=== PATIENT | male | born 1930 | race Caucasian/White ===

== ENCOUNTER 2019-06-28 14:01 | Emergency (ER) | payer MEDICARE, BC ==
[~2019-06-28] VITALS: Ht 180.3 cm; Wt 69.9 kg
[~2019-06-28 14:01] MED LIST: AMIO200T61 PO; ASCO-248 PO; ASPI-1009 PO; DOCU100C40 PO; FLUO-186 PO; METH500T4 PO; OMEG-166 PO; PROP10TA10 PO; SYN0.0125T PO; ZET10T PO; ZOC40T PO; ZOLP5TAB8 PO
--- NOTE | 2019-06-28 14:31 | NUR ---
PT BACK FROM CT VIA [facility] BY [employer]
[2019-06-28] MEDS ORDERED: LIDOcaine 1% W/epiNEPHrine 1:100,000 20ml vial SQ ONE (14:55)
[2019-06-28] MEDS ORDERED: tetanus & diphtheria toxoid (Td) vaccine 0.5ml IMVAC ONE (15:45)
[2019-06-28] MEDS ORDERED: TETanus/Pertussis (Acell)/Diphther VAC/PF (Tdap-Adult) 0.5ml syringe IMVAC ONE (15:50)
[2019-06-28 16:33] VITALS: BP 130/85
== END 2019-06-28 16:36 | disposition home or self-care (01) ==
LOC: ER 14:02
DX: S01.81XA Laceration without foreign body of other part of head, initial encounter (principal); S80.212A Abrasion, left knee, initial encounter; S80.211A Abrasion, right knee, initial encounter; I25.10 Atherosclerotic heart disease of native coronary artery without angina pectoris; M19.90 Unspecified osteoarthritis, unspecified site; Z79.899 Other long term (current) drug therapy; Z79.82 Long term (current) use of aspirin; Z79.01 Long term (current) use of anticoagulants; Z95.1 Presence of aortocoronary bypass graft; W10.8XXA Fall (on) (from) other stairs and steps, initial encounter; Y93.01 Activity, walking, marching and hiking; Y92.89 Other specified places as the place of occurrence of the external cause; Y99.8 Other external cause status
CPT/HCPCS: 12011; 70450; 90471; 99284

== ENCOUNTER → 2019-12-16 | Outpatient (CLI) | payer MEDICARE, BC ==
[~2019-12-16] MED LIST changes: +AMIO100T4 PO; -AMIO200T61 PO; -ASCO-248 PO; -ASPI-1009 PO; +ATOR-2 PO; -DOCU100C40 PO; -FLUO-186 PO; +FLUO10CA30 PO; +LEVO125T8 PO; -METH500T4 PO; +NITR0.4T48 PO; -OMEG-166 PO; -SYN0.0125T PO; +TEMA15CA PO; +WARF1TAB PO; -ZET10T PO; -ZOC40T PO; -ZOLP5TAB8 PO
[2019-12-16 12:16] LABS: BASOPHILS % (AUTO) 1.3 % (0-1); EOSINOPHILS # (AUTO) 0.1 X10'3 (0-0.9); EOSINOPHILS % (AUTO) 3.7 % (0-6); HEMATOCRIT 24.3 % (42.0-52.0); HEMOGLOBIN 7.7 g/dl (14.0-17.9); LYMPHOCYTES # (AUTO) 0.4 X10'3 (1.1-4.8); LYMPHOCYTES % (AUTO) 10.9 % (21-51); MEAN CORPUSCULAR HEMOGLOBIN 25.9 PG (27.0-31.0); MEAN CORPUSCULAR HGB CONC 31.7 g/dL (33.0-36.5); MEAN CORPUSCULAR VOLUME 81.7 FL (78-98); MEAN PLATELET VOLUME 8.4 FL (7.4-10.4); MONOCYTES # (AUTO) 0.4 X10'3 (0-0.9); MONOCYTES % (AUTO) 11.9 % (2-12); NEUTROPHILS # (AUTO) 2.7 X10'3 (1.8-7.7); NEUTROPHILS % (AUTO) 72.2 % (42-75); PLATELET COUNT 111 X10'3 (140-440); RED BLOOD COUNT 2.98 X10'6 (4.70-6.10); WHITE BLOOD COUNT 3.8 X10'3 (4.5-11.0)
== END | disposition home or self-care (01) ==
LOC: LAB 11:42
PROVIDERS: ATTEND Internal Medicine
DX: I48.91 Unspecified atrial fibrillation (principal); D64.9 Anemia, unspecified; R68.89 Other general symptoms and signs
CPT/HCPCS: 36415; 85025

== ENCOUNTER 2020-09-15 08:26 | Observation (INO) | payer MEDICARE, BC ==
[~2020-09-15] VITALS: Ht 180.3 cm; Wt 150.0 kg
[2020-09-15] VITALS (11 sets, daily range): BP systolic 100–117; BP diastolic 43–58
[~2020-09-15 08:26] MED LIST changes: +CHOL100025 PO; +FURO-150 PO; +IRON GLYCINATE PO; +LACT1CAP65 PO; -WARF1TAB PO; +WARF2.5T82 PO; +[UNRECOGNIZED DRUG - OTHER] PO
[2020-09-15 09:23] LABS: BASOPHILS # (AUTO) 0.1 X10'3 (0-0.2); BASOPHILS % (AUTO) 1.4 % (0-1); EOSINOPHILS # (AUTO) 0.1 X10'3 (0-0.9); EOSINOPHILS % (AUTO) 1.7 % (0-6); LYMPHOCYTES # (AUTO) 0.4 X10'3 (1.1-4.8); LYMPHOCYTES % (AUTO) 9.9 % (21-51); MEAN CORPUSCULAR HGB CONC 31.4 g/dL (33.0-36.5); MEAN CORPUSCULAR VOLUME 92.5 FL (78-98); MEAN PLATELET VOLUME 9.2 FL (7.4-10.4); MONOCYTES # (AUTO) 0.4 X10'3 (0-0.9); MONOCYTES % (AUTO) 9.5 % (2-12); NEUTROPHILS # (AUTO) 2.9 X10'3 (1.8-7.7); NEUTROPHILS % (AUTO) 77.5 % (42-75); PLATELET COUNT 120 X10'3 (140-440); RED BLOOD COUNT 2.06 X10'6 (4.70-6.10); RED CELL DISTRIBUTION WIDTH 17.2 % (11.5-14.5); WHITE BLOOD COUNT 3.7 X10'3 (4.5-11.0)
[2020-09-15 09:32] LABS: ALANINE AMINOTRANSFERASE 12 U/L (12-78); ALBUMIN 3.3 G/DL (3.4-5.0); ALKALINE PHOSPHATASE 82 IU/L (46-116); ANION GAP 10 (8-16); ASPARTATE AMINO TRANSFERASE 17 U/L (10-37); BILIRUBIN,TOTAL 0.6 MG/DL (0.1-1.0); BLOOD UREA NITROGEN 32 MG/DL (7-18); BUN/CREATININE RATIO 17.7 (5.4-32.0); CALCIUM 8.1 MG/DL (8.5-10.1); CHLORIDE 105 MMOL/L (99-107); CREATININE 1.81 MG/DL (0.60-1.10); GLUCOSE 136 MG/DL (70-104); POTASSIUM 3.9 MMOL/L (3.5-5.1); SODIUM 138 MMOL/L (135-145); TOTAL CARBON DIOXIDE 23.4 MMOL/L (24-32); TOTAL PROTEIN 6.7 G/DL (6.4-8.2); eGFR 36 ML/MIN
[2020-09-15] MEDS ORDERED: pantoprazole 40 MG vial IV ONE (09:45)
[2020-09-15] MEDS ORDERED: potassium Cl 40MEQ/1/2NS 520ml 520 ML IV PRN ×2 (10:00)
[2020-09-15] MEDS ORDERED: potassium Cl 20 mEq SR tablet PO PRN ×2 (10:00)
[2020-09-15] MEDS ORDERED: magnesium 4gm in 100ml NS 100 ML IV PRN (10:00)
[2020-09-15] MEDS ORDERED: mag hydrox/Alum hydrox/simeth 30ml oral suspension PO PRN (10:00)
[2020-09-15] MEDS ORDERED: docusate sod 100mg capsule PO PRN (10:00)
[2020-09-15] MEDS ORDERED: magnesium 2GM in 50ml NS 50 ML IV PRN (10:00)
[2020-09-15] MEDS ORDERED: ondansetron/PF 4mg/2ml inj IV PRN (10:00)
[2020-09-15] MEDS ORDERED: acetaminophen 325mg tablet PO PRN (10:00)
--- NOTE | 2020-09-15 11:04 | NUR ---
WAITING ON DR. POOL TO CALL BACK TO SIGN BLOOD BANK FORM TO ADMIN BLOOD.
[2020-09-15] MEDS ORDERED: METO-395 PO (11:32)
[2020-09-15] MEDS ORDERED: LEVO75TA7 PO (11:32)
[2020-09-15] MEDS ORDERED: APIX2.5T PO (11:32)
--- NOTE | 2020-09-15 12:00 | NUR ---
PATIENT ARRIVED TO FLOOR. VSS. NO COMPLAINTS. RECEIVED REPORT FROM SALVADOR Chen RN.
--- NOTE | 2020-09-15 13:54 | NUR ---
PAGER ID: [phone] MESSAGE: Glynn LopezB: would you like both units given back to back or check H&H between? thanks! [email or web address] [phone]
[2020-09-15 14:58] LABS: BASOPHILS % (AUTO) 1.1 % (0-1); EOSINOPHILS # (AUTO) 0.1 X10'3 (0-0.9); EOSINOPHILS % (AUTO) 1.7 % (0-6); HEMATOCRIT 22.1 % (42.0-52.0); LYMPHOCYTES # (AUTO) 0.4 X10'3 (1.1-4.8); LYMPHOCYTES % (AUTO) 12.6 % (21-51); MEAN CORPUSCULAR HEMOGLOBIN 29.2 PG (27.0-31.0); MEAN CORPUSCULAR HGB CONC 31.5 g/dL (33.0-36.5); MEAN CORPUSCULAR VOLUME 92.7 FL (78-98); MONOCYTES # (AUTO) 0.4 X10'3 (0-0.9); MONOCYTES % (AUTO) 11.8 % (2-12); NEUTROPHILS # (AUTO) 2.3 X10'3 (1.8-7.7); NEUTROPHILS % (AUTO) 72.8 % (42-75); PLATELET COUNT 104 X10'3 (140-440); RED BLOOD COUNT 2.39 X10'6 (4.70-6.10); RED CELL DISTRIBUTION WIDTH 15.7 % (11.5-14.5); WHITE BLOOD COUNT 3.2 X10'3 (4.5-11.0)
--- NOTE | 2020-09-15 16:09 | NUR ---
PAGER ID: [phone] MESSAGE: Glynn ROJOB: PATIENT WOULD LIKE SLEEPING PILL THAT HE TAKES AT HOME RESTARTED FOR TONIGHT. THANKS! LORRAINE [id number]
[2020-09-15] MEDS ORDERED: nitroGLYCERIN 0.4mg SUBLingual tab SL PRN (16:55)
--- NOTE | 2020-09-15 18:14 | NUR ---
Problems reprioritized. Patient report given, questions answered & plan of care reviewed with YOKASTA VALERA.
[2020-09-15] MEDS: K and/or MAG REPLACEMENT MC SCH (20:00)
[2020-09-15] MEDS ORDERED: temazepam 15mg capsule PO SCH (21:00)
[2020-09-15 22:01] LABS: EOSINOPHILS # (AUTO) 0.1 X10'3 (0-0.9); HEMATOCRIT 23.8 % (42.0-52.0); HEMOGLOBIN 7.7 g/dl (14.0-17.9); LYMPHOCYTES # (AUTO) 0.5 X10'3 (1.1-4.8); LYMPHOCYTES % (AUTO) 11.5 % (21-51); MEAN CORPUSCULAR HEMOGLOBIN 29.1 PG (27.0-31.0); MEAN CORPUSCULAR HGB CONC 32.4 g/dL (33.0-36.5); MEAN CORPUSCULAR VOLUME 89.8 FL (78-98); MEAN PLATELET VOLUME 9.1 FL (7.4-10.4); MONOCYTES # (AUTO) 0.6 X10'3 (0-0.9); MONOCYTES % (AUTO) 12.8 % (2-12); NEUTROPHILS # (AUTO) 3.2 X10'3 (1.8-7.7); NEUTROPHILS % (AUTO) 72.7 % (42-75); PLATELET COUNT 108 X10'3 (140-440); RED BLOOD COUNT 2.65 X10'6 (4.70-6.10); RED CELL DISTRIBUTION WIDTH 15.9 % (11.5-14.5); WHITE BLOOD COUNT 4.3 X10'3 (4.5-11.0)
[2020-09-16] VITALS: BP 104/49
--- NOTE | 2020-09-16 06:25 | NUR ---
Patient in room [facility]. I have received report from YOKASTA Johnson and had the opportunity to ask questions and assume patient care.
[2020-09-16 06:30] VITALS: BP 119/65
[2020-09-16 06:56] LABS: EOSINOPHILS # (AUTO) 0.1 X10'3 (0-0.9); HEMATOCRIT 23.3 % (42.0-52.0); HEMOGLOBIN 7.7 g/dl (14.0-17.9); LYMPHOCYTES # (AUTO) 0.4 X10'3 (1.1-4.8); LYMPHOCYTES % (AUTO) 12.3 % (21-51); MEAN CORPUSCULAR HEMOGLOBIN 29.6 PG (27.0-31.0); MEAN CORPUSCULAR HGB CONC 32.8 g/dL (33.0-36.5); MEAN CORPUSCULAR VOLUME 90.3 FL (78-98); MEAN PLATELET VOLUME 9.2 FL (7.4-10.4); MONOCYTES # (AUTO) 0.4 X10'3 (0-0.9); MONOCYTES % (AUTO) 12.3 % (2-12); NEUTROPHILS # (AUTO) 2.6 X10'3 (1.8-7.7); NEUTROPHILS % (AUTO) 71.4 % (42-75); PLATELET COUNT 100 X10'3 (140-440); RED BLOOD COUNT 2.58 X10'6 (4.70-6.10); RED CELL DISTRIBUTION WIDTH 16.1 % (11.5-14.5); WHITE BLOOD COUNT 3.6 X10'3 (4.5-11.0)
[2020-09-16] MEDS: K and/or MAG REPLACEMENT MC SCH (07:07)
[2020-09-16] MEDS ORDERED: levoTHYROXINE 75mcg tablet PO SCH (07:30)
[2020-09-16] MEDS ORDERED: amiodarone 100mg tablet PO SCH (08:00)
[2020-09-16] MEDS ORDERED: metoprolol succinate 25mg (24-HOUR) SR. Tablet PO SCH (08:00)
[2020-09-16] MEDS ORDERED: lactobacillus rhamnosus 10,000 MMU CELLS/CAPSULE PO SCH (08:00)
[2020-09-16] MEDS ORDERED: atorvastatin 20mg tablet PO SCH (08:00)
[2020-09-16] MEDS ORDERED: furosemide 20MG tablet PO SCH (08:00)
[2020-09-16] MEDS ORDERED: vitamin D (cholecalciferol) 1,000 unit tablet PO SCH (08:00)
[2020-09-16] MEDS ORDERED: FLUoxetine 10mg capsule PO SCH (08:00)
[2020-09-16] MEDS ORDERED: ASCO-134 PO (10:49)
[2020-09-16] MEDS ORDERED: FERR325T28 PO (10:49)
[2020-09-16 11:00] VITALS: BP 109/55
--- NOTE | 2020-09-16 12:15 | NUR ---
DC inst provided to pt. IV DC'd, tip intact. All belongings sent w/pt. WC to front lobby.
--- NOTE | 2020-09-18 10:22 | NUR ---
CASE MANAGEMENT DISCHARGE FOLLOW UP: T/c to pt, no answer, left non-specific message requesting call back.
== END 2020-09-16 12:15 | disposition home health service (06) ==
LOC: ER 08:27 → ED HOLD 09:57 → EDBEDREQ 11:08 → SUR 3N 12:07
PROVIDERS: ADMIT Family Medicine; ATTEND Family Medicine
DX: D64.9 Anemia, unspecified (principal); K92.2 Gastrointestinal hemorrhage, unspecified; I48.20 Chronic atrial fibrillation, unspecified; E03.9 Hypothyroidism, unspecified; N18.30 Chronic kidney disease, stage 3 unspecified; N17.9 Acute kidney failure, unspecified; R07.89 Other chest pain; M19.90 Unspecified osteoarthritis, unspecified site; I25.10 Atherosclerotic heart disease of native coronary artery without angina pectoris; N40.0 Benign prostatic hyperplasia without lower urinary tract symptoms; Z85.528 Personal history of other malignant neoplasm of kidney; Z95.1 Presence of aortocoronary bypass graft; Z95.0 Presence of cardiac pacemaker; Z79.01 Long term (current) use of anticoagulants; Z79.899 Other long term (current) drug therapy
CPT/HCPCS: 36415; 36430; 80053; 83735; 84443; 84484; 85025; 86885; 86900; 86901; 86920; 87081; 93005; 96374; 97116; 97161; 97530; 99284; C9113; G0378; P9016